=== PATIENT | male | born 1990 | race Caucasian/White ===

== ENCOUNTER 2023-03-09 09:59 | Emergency (ER) | payer OTHER ==
[2023-03-09] MEDS ORDERED: levETIRAcetam 500 MG/5 ML VIAL ONE (10:41)
== END 2023-03-09 12:21 | disposition home or self-care (01) ==
LOC: CSHERS 09:59
DX: S01.81XA Laceration without foreign body of other part of head, initial encounter (principal); R56.9 Unspecified convulsions; W19.XXXA Unspecified fall, initial encounter
CPT/HCPCS: 12013; 70450; 72125; 93005; 96374; 99284; J1953

== ENCOUNTER 2023-03-22 12:02 | Emergency (ER) | payer OTHER | END 2023-03-22 12:25 | disposition home or self-care (01) | LOC: CSHERS 12:02 | DX: S01.111D Laceration without foreign body of right eyelid and periocular area, subsequent encounter (principal); W18.30XD Fall on same level, unspecified, subsequent encounter ==